=== PATIENT | male | born 1960 | race African-American/Black ===

== ENCOUNTER 2024-12-03 10:32 | Inpatient (IN) ==
[2024-12-03 11:54] LABS: Appearance Urine Clear (Clear); Glucose Urine UA Negative (Negative)
[2024-12-03 12:07] LABS: Hematocrit (blood only) 39.6 % (42.0-52.0); Hemoglobin 12.4 g/dl (14.0-18.0); Immature Granulocytes # (auto) 0.01 K/uL (0.01-0.20); Immature Granulocytes % (auto) 0.2 %; Mean Corpuscular Hemoglobin 25.0 pg (25.0-34.0); Mean Corpuscular Volume 79.8 fL (80.0-100.0); Platelet Count 212 K/uL (130-400); RDW Standard Deviation 44.6 fL (36.4-46.3); Red Blood Count 4.96 M/uL (4.70-6.10); White Blood Count 4.02 K/ul (4.8-10.8)
[2024-12-03 12:50] LABS: Alanine Aminotransferase 14.0 U/L (7-52); Albumin Globulin Ratio 1.0 (0.9-2); Albumin Level 4.0 gm/dl (3.4-5.0); Alkaline Phosphatase 59.0 U/L (34-104); Anion Gap 7.0 (3-11); Bilirubin,Total 0.6 mg/dl (0.2-1.0); Blood Urea Nitrogen 11.0 mg/dl (6-23); Calcium 9.3 mg/dl (8.6-10.3); Carbon Dioxide 29.0 mmol/L (21-32); Chloride 103.0 mmol/L (98-107); Creatinine Clr Calc Pharmacy 86.1 ml/min; Globulin 4.0 gm/dl (2.5-4.0); Glucose 102.0 mg/dl (70-99(Fasting)); Potassium 3.7 mmol/L (3.5-5.1); Sodium 139.0 mmol/L (136-145); Total Protein 8.0 gm/dl (6.0-8.3)
--- NOTE | 2024-12-03 12:52 | Emergency Department Note ---
Impression & Plan Stroke-like symptoms, New onset a-fib ED Provider Note NAME: CHRISTELLE [id number] RYAN AGE: 64 SEX: M : 1960 ARRIVES VIA: Ambulance INFORMANT: Patient, ED PROVIDER(S): Tory Sharma MD CHIEF COMPLAINT: Dizziness, headache, vision change HPI: This is a 64-year-old male present for dizziness, headache and vision change. Patient states that he began having symptoms for past 4 to 5 days, intermittently. He has dizziness. Feels like the room is spinning. He also notes a headache at this time. Occasionally he will have left eye vision changes when his vision goes out completely. Today because black incisor is blurry. He reports no weakness to his arms or legs otherwise. No recent falls. Patient does not think he is on a blood thinner. ROS: See above HPI for pertinent positives & negatives. A total of 10 systems reviewed and were otherwise negative. PAST MEDICAL HISTORY: See Below PAST SURGICAL HISTORY: See Below FAMILY HISTORY: See Below SOCIAL HISTORY: See Below HOME MEDICATIONS: See Below ALLERGIES: See Below VITALS: See Below PHYSICAL EXAMINATION: General: resting comfortably in no acute distress Head: Normocephalic and atraumatic Eyes: Normal inspection, extraocular muscles intact Ear, nose, throat: Normal external exam Neck: Normal range of motion Respiratory: lungs clear to auscultation bilaterally Cardiovascular: Regular rate/rhythm, no murmur GI: soft, nontender, no guarding or rebound Extremities: nontender, moves all extremities Neuro: The patient awake and alert, appropriately conversive, no focal deficits, symmetric faces, symmetric motor function upper lower extremities, right beating nystagmus, cranial nerves II through XII intact Skin: Warm, dry, and intact MEDICAL DECISION MAKING: This is a 64-year-old male presenting for dizziness, headache and vision change. Will do screening CTA head and neck to assess for LVO. Consider CRAO, vertigo, central stroke. Will do screening blood work. Patient is not sure if he is ever had A-fib and does not think is on a blood thinner only blood pressure medication. I am unable to find record of patient having A-fib or a blood thinner on his records from [facility]. -Negative urinalysis - Bloodwork is reviewed showing no significant leukocytosis, anemia, electrolyte or creatinine abnormality - CT imaging reveals mild to moderate stenosis of the V2 segment of the vertebral arteries at the C4/C5 level - CT head does reveal signs of likely old infarct - Patient's intermittent symptoms, possible new A-fib with anticoagulation will with the patient for further stroke workup A-fib. Differential diagnosis: Migraine, CRAO, vertigo, stroke, A-fib Independent History obtained from: Presyncope Diagnostics interpreted by me: ECG: ECG independently interpreted by me with atrial fibrillation rate of 76, left axis deviation, intraventricular conduction delay normal QTc, no ST segment elevations consistent with STEMI criteria Cardiac Monitoring: An order was placed for continuous cardiac monitoring. The monitor shows a rate of 86 with sinus rhythm. Past Med/Surg History Problem List (Updated 12/03/24 @ 17:18 by Tory Sharma MD) Stroke-like symptoms (Acute) New onset a-fib (Acute) Medical History (Updated 12/03/24 @ 17:18 by Tory Sharma MD) Sciatica Chronic pain syndrome Glaucoma Neuropathy HLD (hyperlipidemia) HTN (hypertension) Social History Smoking Status: Former smoker Preferred Language: Estonian Feels Safe at Home: Yes Allergies Allergies Allergy/AdvReac Type Severity Reaction Status Date / Time No Known Allergies Allergy Unverified 12/03/24 15:53 Home Meds Home Medications Medication Instructions Recorded Confirmed amlodipine 10 mg tablet 10 mg PO DAILY 12/03/24 12/03/24 aspirin 81 mg tablet 81 mg PO QAM 12/03/24 12/03/24 brimonidine 0.2 % eye drops 1 drp ophthalmic (eye) TID 12/03/24 12/03/24 dorzolamide 2 % eye drops 1 drp ophthalmic (eye) TID 12/03/24 12/03/24 enalapril maleate 10 mg tablet 10 mg PO DAILY 12/03/24 12/03/24 (Vasotec) latanoprost 0.005 % eye drops 1 drp ophthalmic (eye) PM 12/03/24 12/03/24 levothyroxine 200 mcg tablet 200 mcg PO DAILY 12/03/24 12/03/24 levothyroxine 25 mcg tablet 25 mcg PO DAILY 12/03/24 12/03/24 pravastatin 20 mg tablet 20 mg PO HS 12/03/24 12/03/24 timolol maleate 0.25 % eye drops 1 drp ophthalmic (eye) BID 12/03/24 12/03/24 Results & Data (ED) Vital Signs Vital Signs - 24 hr 12/03/24 10:27 12/03/24 10:27 12/03/24 12:27 Temperature 36.8 C Temperature Source Oral Pulse Rate 85 Pulse Rate [Apical] 63 Pulse Rhythm Regular Pulse Rhythm [Apical] Regular Pulse Strength Normal Pulse Strength [Apical] Normal Respiratory Rate 12 22 Respiratory Effort / Characteristics Non-Labored Spontaneous Non-Labored Respiratory Depth Normal Normal Respiratory Pattern Regular Blood Pressure 152/109 H Blood Pressure [Right Arm] 133/85 Blood Pressure Mean 123 Blood Pressure Mean [Right Arm] 101 Pulse Oximetry 97 97 95 Oxygen Delivery Method Room Air Room Air Room Air Sepsis Recent Fever Within 48 Hours No Sepsis New/Unexplained Change in Mental Status No Sepsis Action Taken by Nursing No Action Required 12/03/24 14:00 12/03/24 15:20 12/03/24 16:18 Temperature Temperature Source Pulse Rate 76 Pulse Rate [Apical] 81 86 Pulse Rhythm Pulse Rhythm [Apical] Pulse Strength Pulse Strength [Apical] Respiratory Rate 23 19 Respiratory Effort / Characteristics Non-Labored Respiratory Depth Normal Respiratory Pattern Blood Pressure Blood Pressure [Right Arm] 138/83 159/83 H Blood Pressure Mean Blood Pressure Mean [Right Arm] 101 108 Pulse Oximetry 99 97 Oxygen Delivery Method Room Air Room Air Sepsis Recent Fever Within 48 Hours Sepsis New/Unexplained Change in Mental Status Sepsis Action Taken by Nursing Laboratory Data 12/03/24 11:51 12/03/24 12:06 Lab Results 12/03/24 12/03/24 12/03/24 Range/Units 11:00 11:51 12:06 WBC 4.02 L (4.8-10.8) K/ul RBC 4.96 (4.70-6.10) M/uL Hgb 12.4 L (14.0-18.0) g/dl Hct 39.6 L (42.0-52.0) % MCV 79.8 L (80.0-100.0) fL MCH 25.0 (25.0-34.0) pg MCHC 31.3 L (32.0-36.0) g/dL RDW Std Deviation 44.6 (36.4-46.3) fL RDW Coeff of Abdoul 15.6 H (11.5-14.5) % Plt Count 212 (130-400) K/uL MPV 8.6 L (9.4-12.4) fL Immature Gran % (Auto) 0.2 % Neut % (Auto) 61.2 % Lymph % (Auto) 27.4 % [place] % (Auto) 10.2 % Eos % (Auto) 0.5 % Baso % (Auto) 0.5 % Neut # (Auto) 2.46 (1.40-6.50) K/uL Lymph # (Auto) 1.10 L (1.20-3.40) K/uL [place] # (Auto) 0.41 (0.11-0.59) K/uL Eos # (Auto) 0.02 (0.00-0.50) K/uL Baso # (Auto) 0.02 (0.00-0.20) K/uL Immature Gran # (Auto) 0.01 (0.01-0.20) K/uL Sodium 139 (136-145) mmol/L Potassium 3.7 (3.5-5.1) mmol/L Chloride 103 (98-107) mmol/L Carbon Dioxide 29 (21-32) mmol/L Anion Gap 7 (3-11) BUN 11 (6-23) mg/dl Creatinine 0.88 (0.6-1.4) mg/dl Est Cr Clr Drug Dosing 86.1 ml/min eGFR 94.84 BUN/Creatinine Ratio 12.5 (10-20) Glucose 102 H (70-99(Fasting)) mg/dl Calcium 9.3 (8.6-10.3) mg/dl Total Bilirubin 0.6 (0.2-1.0) mg/dl AST 21 (13-39) U/L ALT 14 (7-52) U/L Alkaline Phosphatase 59 (34-104) U/L Troponin I High Sens 15.8 (0-20) pg/ml Total Protein 8.0 (6.0-8.3) gm/dl Albumin 4.0 (3.4-5.0) gm/dl Globulin 4.0 (2.5-4.0) gm/dl Albumin/Globulin Ratio 1.0 (0.9-2) TSH 3.120 (0.300-4.500) uIu/ml Urine Color Yellow Urine Appearance Clear (Clear) Urine pH 7.5 (4.5-7.5) Ur Specific [place] 1.012 (1.000-1.030) Urine Protein Negative (Negative) Urine Glucose (UA) Negative (Negative) Urine Ketones Negative (Negative) Urine Blood Negative (Negative) Urine Nitrite Negative (Negative) Urine Bilirubin Negative (Negative) Urine Urobilinogen Negative (Negative) Ur Leukocyte Esterase Negative (Negative) Urine Comment Administered Medications Discontinued Medications Ioversol (Optiray 320 125ml) 120 ml IV ONCE ONE Stop: 12/03/24 13:19 Last Admin: 12/03/24 13:18 Dose: 120 ml Documented By: VIANEY Imaging Data Radiologist's Impression: Head CTA 12/03/24 11:08 CT angio head wo/w CLINICAL HISTORY: Vision loss, headache, vertigo COMPARISON STUDY: None FINDINGS: Noncontrast head CT: There is a moderate-sized area of encephalomalacia posterior right parietal lobe into the right temporal lobe, likely old infarction. No intracranial hemorrhage seen. No mass effect, midline shift, or hydrocephalus. No skull fracture seen. Visualized paranasal sinuses and mastoid air cells are clear. CTA: Distal internal carotid and vertebral arteries are patent. Left vertebral artery is dominant and the right vertebral artery is very diminutive, anatomic variant. Basilar artery is diminutive but patent. Anterior, middle, and posterior cerebral arteries are patent bilaterally. 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 Cerebral venous sinuses opacify normally. IMPRESSION: 1. No acute findings. 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 2. No significant arterial narrowing or occlusion seen at the brain. ACT 112: Negative or not required by law. Electronically signed by: Omar Blue M.D. 12/03/2024 1:43 PM Neck CTA 12/03/24 11:08 CT angio neck with con CLINICAL HISTORY: 64 years-old Male with Vision loss, headache, vertigo. Acute headache with vertigo COMPARISON STUDY: CTA head of same day TECHNIQUE: Following the IV administration of 1 20 mL of Optiray, CT angiogram of the neck was performed from the aortic arch to the skull base. Images are reviewed in the axial, sagittal, and coronal planes. 3-D MIPS images are created and assessed. IV contrast was administered without complication. All measurements were calculated based on NASCET criteria. A dose lowering technique was utilized adhering to the principles of ALARA. CT DOSE: 1332.15 mGy.cm FINDINGS: Three-vessel morphology of the thoracic aortic arch. There is patency of the innominate and image subclavian arteries. The common and imaged internal carotid arteries are also widely patent. Dominant left vertebral artery is widely patent. There is approximately 50% stenosis of the left V2 segment at the level of C4-C5 secondary to spondylosis. The right vertebral artery is developmentally diminutive and patent. There is at least 50% stenosis of the V2 segment level C4-C5 secondary to spondylosis. Lung apices are clear without pneumothorax. Unremarkable soft tissues. Multilevel degenerative changes of the spine with bridging osteophytosis. IMPRESSION: 1. No aneurysm, dissection, high-grade stenosis or arterial occlusion. 2. Mild to moderate stenoses of the V2 segments of the vertebral arteries at the level of C4-C5 secondary to spondylosis. ACT 112: Negative or not required by law. The above report was generated using voice recognition software. It may contain grammatical, syntax or spelling errors. Electronically signed by: Terrell Garay M.D. 12/03/2024 1:46 PM Discharge Plan Visit Data Chief Complaint: Dizziness Stated Complaint: DIZZY ED Provider: Tory Sharma Discharge Problem: Stroke-like symptoms, New onset a-fib Patient Disposition: Admitted As Inpatient Condition: Fair Prescriptions Prescriptions: No Action latanoprost 0.005 % Drops 1 drp OPHTHALMIC (EYE) PM enalapril maleate [Vasotec] 10 mg Tablet 10 mg PO DAILY levothyroxine 25 mcg Tablet 25 mcg PO DAILY amlodipine 10 mg Tablet 10 mg PO DAILY timolol maleate [Timoptic] 0.25 % Drops 1 drp OPHTHALMIC (EYE) BID brimonidine [Alphagan] 0.2 % Drops 1 drp OPHTHALMIC (EYE) TID Rx Instructions: administer approximately 8 hours apart levothyroxine 200 mcg Tablet 200 mcg PO DAILY aspirin 81 mg Tablet 81 mg PO QAM pravastatin 20 mg Tablet 20 mg PO HS dorzolamide [Trusopt] 2 % Drops 1 drp OPHTHALMIC (EYE) TID [facility]errals [facility] -
[2024-12-03] MEDS: OPTIRAY 320 125ml IV ONE (13:18)
--- NOTE | 2024-12-03 13:31 | Electrocardiogram Report ---
Test Reason : Blood Pressure : */* mmHG Vent. Rate : 76 BPM Atrial Rate : * BPM P-R Int : * ms QRS Dur : 136 ms QT Int : 402 ms P-R-T Axes : * -52 96 degrees QTcB Int : 452 ms Atrial fibrillation Left axis deviation Non-specific intra-ventricular conduction block Minimal voltage criteria for LVH, may be normal variant T wave abnormality, consider lateral ischemia Abnormal ECG Confirmed by Thaddeus Griffin ([id number]) on 12/03/2024 1:30:49 PM Referred By: [facility] Confirmed By: Thaddeus Griffin
--- NOTE | 2024-12-03 13:44 | CT Scan Report ---
CT angio head wo/w CLINICAL HISTORY: Vision loss, headache, vertigo COMPARISON STUDY: None FINDINGS: Noncontrast head CT: There is a moderate-sized area of encephalomalacia posterior right parietal lobe into the right temporal lobe, likely old infarction. No intracranial hemorrhage seen. No mass effect , midline shift, or hydrocephalus. No skull fracture seen. Visualized paranasal sinuses and mastoid a ir cells are clear. CTA: Distal internal carotid and vertebral arteries are patent. Left vertebral artery is dominant and the right vertebral artery is very diminutive, anatomic variant. Basilar artery is diminutive but pa tent. Anterior, middle, and posterior cerebral arteries are patent bilaterally. 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 Cerebral venous sinuses opacify normally. IMPRESSION: 1. No acute findings. 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 2. No significant arterial narrowing or occlusion seen at the brain. ACT 112: Negative or not required by law. Electronically signed by: Omar Blue M.D. 12/03/2024 1:43 PM
--- NOTE | 2024-12-03 13:47 | CT Scan Report ---
CT angio neck with con CLINICAL HISTORY: 64 years-old Male with Vision loss, headache, vertigo. Acute headache with verti go COMPARISON STUDY: CTA head of same day TECHNIQUE: Following the IV administration of 1 20 mL of Optiray, CT angiogram of the neck was perfor med from the aortic arch to the skull base. Images are reviewed in the axial, sagittal, and coronal p lanes. 3-D MIPS images are created and assessed. IV contrast was administered without complication. A ll measurements were calculated based on NASCET criteria. A dose lowering technique was utilized adh ering to the principles of ALARA. CT DOSE: 1332.15 mGy.cm FINDINGS: Three-vessel morphology of the thoracic aortic arch. There is patency of the innominate and image sub clavian arteries. The common and imaged internal carotid arteries are also widely patent. Dominant le ft vertebral artery is widely patent. There is approximately 50% stenosis of the left V2 segment at t he level of C4-C5 secondary to spondylosis. The right vertebral artery is developmentally diminutive and patent. There is at least 50% stenosis of the V2 segment level C4-C5 secondary to spondylosis. Lung apices are clear without pneumothorax. Unremarkable soft tissues. Multilevel degenerative change s of the spine with bridging osteophytosis. IMPRESSION: 1. No aneurysm, dissection, high-grade stenosis or arterial occlusion. 2. Mild to moderate stenoses of the V2 segments of the vertebral arteries at the level of C4-C5 secon rachel to spondylosis. ACT 112: Negative or not required by law. The above report was generated using voice recognition software. It may contain grammatical, syntax o r spelling errors. Electronically signed by: Terrell Garay M.D. 12/03/2024 1:46 PM
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
[2024-12-03 16:54] LABS: Thyroid Stimulating Hormone 3.12 uIu/ml (0.300-4.500)
--- NOTE | 2024-12-03 17:38 | XCELERA ---
[id number]
[2024-12-03] MEDS ORDERED: PHARMACIST DISCHARGE MED REC CONSULT PRN (17:53)
[2024-12-03] MEDS: ASPIRIN 81 MG ECTAB PO STA (18:40)
[2024-12-03] MEDS: APIXABAN 5 MG TABLET PO STA (18:40)
[2024-12-03] MEDS: GADOBUTROL 65ML VIAL IV ONE (20:06)
[2024-12-03] MEDS: METOPROLOL TARTRATE 25 MG TAB PO SCH (21:06)
[2024-12-03] MEDS: BRIMONIDINE TARTRATE 0.2% 5ML OP SCH (21:06)
[2024-12-03] MEDS: ATORVASTATIN 40 MG TAB PO SCH (21:06)
[2024-12-03] MEDS: DORZOLAMIDE HCL 2% OPH SOLN 10 ML BTL OP SCH (21:06)
[2024-12-03] MEDS: TIMOLOL MALEATE 0.25% OP SOLN 5 ML BTL OP SCH (21:06)
--- NOTE | 2024-12-03 22:03 | Magnetic Resonance Report ---
Exam(s): MRI HEAD W/WO Contrast EXAM: MR Head Without and With Intravenous Contrast CLINICAL HISTORY: Reason for exam: eval for cva. TECHNIQUE: Magnetic resonance images of the head/brain without and with intravenous contrast in multiple planes. CONTRAST: Contrast must be dictated COMPARISON: Prior head CT from December 03, 2024. FINDINGS: Brain: There is a remote ischemic injury of the right frontal, temporal and temporal lobes with encephalomalacia and gliosis. Remote ischemic changes of the left cerebellum. Mild nonspecific white matter changes. No mass. No hemorrhage. No acute infarct. The flow voids at the base the brain are intact. No evidence of abnormal enhancement. The dural venous sinuses are patent. Ventricles: Unremarkable. No ventriculomegaly. Bones/joints: Unremarkable. No acute fracture. Sinuses: Unremarkable as visualized. Chronic ethmoid sinusitis. Visualized. No mastoid effusion. Orbits: Unremarkable as visualized. IMPRESSION: No evidence of acute intracranial pathology. Electronically signed by: Shannon Colon MD 12/03/24 22:02 PM
[2024-12-03] MEDS ORDERED: ATROPINE SULFATE 0.1 MG/ML 10ML SYR IV PRN (23:40)
--- NOTE | 2024-12-03 23:41 | Communication Note ---
Date of Service: December 03, 2024 Made aware by RN of patient bradycardia, heart rate low 40's with episode of Pause lasting 3 second. Patient comfortable as per RN. SBP 100s. AP Asymptomatic bradycardia, episodic sinus pause Patient started on beta-azhida on admission for A-fib Hold beta-zahida for now, may need to be resumed at lower dose. IV atropine as needed symptomatic bradycardia
[2024-12-04] LABS: Magnesium 2.1 mg/dl (1.7-2.4)
[2024-12-04] MEDS: NSS + 20MEQ KCL 20 MEQ/1,000 ML BAG IV ONE (00:37)
[2024-12-04] MEDS: LEVOTHYROXINE SODIUM 25 MCG TABLET PO SCH (05:57)
[2024-12-04] MEDS: LEVOTHYROXINE SODIUM 200 MCG TABLET PO SCH (05:58)
[2024-12-04 08:05] LABS: Hematocrit (blood only) 37.0 % (42.0-52.0); Hemoglobin 11.4 g/dl (14.0-18.0); Immature Granulocytes # (auto) 0.02 K/uL (0.01-0.20); Immature Granulocytes % (auto) 0.5 %; Mean Corpuscular Hemoglobin 24.6 pg (25.0-34.0); Mean Corpuscular Volume 79.9 fL (80.0-100.0); Platelet Count 188 K/uL (130-400); RDW Standard Deviation 45.4 fL (36.4-46.3); Red Blood Count 4.63 M/uL (4.70-6.10); White Blood Count 4.08 K/ul (4.8-10.8)
[2024-12-04 08:24] LABS: Anion Gap 7.0 (3-11); Blood Urea Nitrogen 16.0 mg/dl (6-23); Calcium 9.0 mg/dl (8.6-10.3); Carbon Dioxide 28.0 mmol/L (21-32); Chloride 103.0 mmol/L (98-107); Cholesterol 177.0 mg/dl (0-200); Creatinine Clr Calc Pharmacy 64.2 ml/min; Glucose 123.0 mg/dl (70-99(Fasting)); HDL Cholesterol 57.0 mg/dl; Potassium 4.0 mmol/L (3.5-5.1); Sodium 138.0 mmol/L (136-145); Triglycerides 66.0 mg/dl (0-150)
--- NOTE | 2024-12-04 08:47 | Cardiology Consultation ---
Date of Consultation December 04, 2024 Assessment & Plan (1) Atrial fibrillation with controlled ventricular rate: (2) Amaurosis fugax of left eye: (3) LV dysfunction: Plan Patient is a 64 year old male prisoner admitted with acute visual changes, possible left eye amaurosis fugax, slurred speech, concerning for acute CVA . No evidence of acute CVA on brain MRI. 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 Newly diagnosed atrial fibrillation noted on EKG. Rates controlled. Duration unknown. Asymptomatic. Also found to have cardiomyopathy with LV dysfunction 30-35%. No interatrial shunt. No known cardiovascular history. HS troponin negative. No anginal symptoms or complaints. Neurology consulted for CVA. Cardiology consulted for Afib and Cardiomyopathy. Recommendations: Initially Afib was treated on admission with metoprolol tartrate 25 mg BID. Patient developed transient slow rates with beta zahida. Oral Beta zahida discontinued. He needs to continue his timolol beta zahida eye drops for glaucoma. Monitor on telemetry. He currently has no symptoms. No current indication for pacemaker. Started Eliquis 5 mg BID for anticoagulation therapy. Likely had TIA on admission with negative imaging. Old CVA noted on Brain MRI. He is also borderline hypotensive. Hold home dose amlodipine and enalapril. New cardiomyopathy. Etiology uncertain. no symptoms. -Will need GDMT as tolerated. Likely to start losartan rather than enalapril when BP improves. -Not able to start BB given slow ventricular rates. -Appears euvolemic and does not require diuretics at this time. -Consider outpatient nuclear stress test after he recovers from neurologic event. Cardiac cath not recommended at this time. -Consider Lifevest given LVEF < 35%. Will need to verify if this is allowed at skilled nursing facility. Case discussed with Dr. Rodriguez I spent a total of 60 minutes on the date of service in preparation, delivery, and documentation of the care provided to this patient, excluding any time spent in the performance of separately billed services. Shannon Gaines PA-C Department of Cardiology, [facility] This chart was completed in part utilizing Speech Voice Recognition Software. Grammatical errors, random word insertions, pronoun errors, and incomplete sentences are an occasional consequence of this system due to software limitations, ambient noise, and hardware issues. Any formal questions or concerns about the content, text, or information contained within the body of this dictation should be directly addressed to the provider for clarification. Supervising Physician Co-Signing Physician Notes I have personally performed a history and physical examination on the patient. I have reviewed the advance practitioner's documentation, and I agree with, and take responsibility for the plan of care. 64-year-old male presenting with visual changes, dizziness, and headache concerning for TIA. Cardiac testing demonstrating atrial fibrillation (likely chronic) and cardiomyopathy with severe LV systolic dysfunction. No sign/symptom decompensated heart failure. Denies angina, orthopnea, PND, or lower extremity edema. Patient unaware of cardiac issues. Reports remote history of atrial fibrillation coinciding with diagnosis of thyroid dysfunction in the . Currently resting comfortably. Visual changes and dizziness has resolved. Asymptomatic 3 to 3.6-second pauses recorded on telemetry after administration of metoprolol. Recommendations: * Long-term anticoagulation with Eliquis 5 mg twice daily * Discontinue beta-zahida * Consider addition of low-dose RAYMOND inhibitor/ARB in a.m. * Continue telemetry monitoring. * No indication for diuretic therapy at this time * Outpatient ischemic testing, Lexiscan nuclear stress testing when he recovers from neurologic event. * Consider LifeVest due to LVEF < 35% at discharge. I spent a total of 35 minutes on the date of service in preparation, delivery, and documentation of the care provided to this patient, excluding any time spent in the performance of separately billed services. Camilo Rodriguez DO, [facility] History of Present Illness Reason for Consultation: Atrial fibrillation; Cardiomypathy Requesting Physician: Araceli Li Attending Physician: Dr. Rodriguez History of Present Illness Patient is a 64 year male prisoner, who presented to [facility] with complaints of visual disturbances and dizziness over the last 3-4 days. He was also found to have possible delayed and slurred speach yesterday at the skilled nursing, and then sent to ER for evaluation. Initial Head CT demonstrating possible old right parietal infarct. No acute CVA. CTA of the neck shows mild to moderate stenosis of the vertebral arteries at the C4-C5 level secondary to spondylosis. Brain MRI was negative. He was incidentally found to have new onset atrial fibrillation. Duration unknown. Patient reported palpitations intermittently over the last few days. He was started on Eliquis 5 mg BID by hospitalist team due to prior stroke on CTA and possible symptoms suggesting TIA. Also upon admission he was found to have LV systolic dysfunction with LVEF at 30-35%. Patient reports the he may have had afib approx 30 years ago when he had Graves disease, but is unsure. He denies history of WI, CHF, valvular disease. He has had no recent chest pain or dyspnea to suggest angina. No CHF symptoms. On admission patient was started on metoprolol tartrate 25 mg BID. Overnight he had afib with slow ventricular rates and several pauses of 3 to 3.5 seconds. He has been asymptomatic with these slow ventricular rates. BP also borderline low. Antihypertensive therapies on hold (typically takes enalapril and amlodipine) At time of evaluation, patient reports he is feeling better since admission. He reports his vision is chronically impaired from glaucoma. He also does not have his glasses and reports its hard to tell if his vision is back at baseline. No chest pain/dyspnea/dizziness/palpitations. History includes: 1. HTN 2. Dyslipidemia 3. Graves disease with past Iodine therapy 4. Glaucoma 5. Chronic pain syndrome 6. Neuropathy 7. Chronic tobacco abuse Allergies Allergy/AdvReac Type Severity Reaction Status Date / Time No Known Allergies Allergy Unverified 12/03/24 15:53 Home Medications Medication Instructions Recorded Confirmed Type amlodipine 10 mg tablet 10 mg PO DAILY 12/03/24 12/03/24 History aspirin 81 mg tablet 81 mg PO QAM 12/03/24 12/03/24 History brimonidine 0.2 % eye drops 1 drp ophthalmic (eye) TID 12/03/24 12/03/24 History dorzolamide 2 % eye drops 1 drp ophthalmic (eye) TID 12/03/24 12/03/24 History enalapril maleate 10 mg tablet 10 mg PO DAILY 12/03/24 12/03/24 History (Vasotec) latanoprost 0.005 % eye drops 1 drp ophthalmic (eye) PM 12/03/24 12/03/24 History levothyroxine 200 mcg tablet 200 mcg PO DAILY 12/03/24 12/03/24 History levothyroxine 25 mcg tablet 25 mcg PO DAILY 12/03/24 12/03/24 History pravastatin 20 mg tablet 20 mg PO HS 12/03/24 12/03/24 History timolol maleate 0.25 % eye drops 1 drp ophthalmic (eye) BID 12/03/24 12/03/24 History Patient History Medical History (Updated 12/04/24 @ 13:33 by Shannon Gaines PA-C) Sciatica Chronic pain syndrome Glaucoma Neuropathy HLD (hyperlipidemia) HTN (hypertension) Social History Smoking Status: Former smoker Hx Alcohol Use: No Hx Substance Use: No Preferred Language: Japanese Juvenile Justice Officer Required: No Beliefs That Will Affect Care: None Current Living Situation: Other Current Living Situation Comment: [facility] Feels Safe at Home: Yes Review of Systems Review of Systems: All systems reviewed & are unremarkable except as noted in HPI & below Physical Exam Constitutional: WD/WN, vitals as above Neck: trachea midline, no thyromegaly Respiratory: normal respiratory effort, lungs clear to auscultation Cardiovascular: Rate/Rhythm: + irregularly irregular Heart Sounds: normal S1 and normal S2; no murmur Vessels: no JVD Extremities: no edema Gastrointestinal (Abdomen): normal bowel sounds, soft, nontender, no hepatosplenomegaly Musculoskeletal: no cyanosis or clubbing, extremities motor strength 5/5 Neurologic: PERRL, EOMI, accommodation nl, no face palsy, no dysarthria Results & Data Vital Signs (Past 12 Hours) Vital Signs Temp Pulse Pulse Resp BP Pulse Ox O2 Del Method 12/04/24 08:09 36.6 C 54 L 18 100/58 L 97 Room Air 12/04/24 03:01 36.5 C 70 18 106/66 96 Room Air 12/03/24 23:32 40 L 20 102/60 96 Room Air 12/03/24 22:28 36.5 C 71 18 114/75 96 Room Air 12/03/24 21:43 62 12/03/24 21:30 Room Air Laboratory Results Lipids 12/04/24 Range/Units 06:50 Triglycerides 66 (0-150) mg/dl Cholesterol 177 (0-200) mg/dl HDL Cholesterol 57 mg/dl Cholesterol/HDL Ratio 3.1 (0-5) CBC 12/04/24 Range/Units 06:50 WBC 4.08 L (4.8-10.8) K/ul RBC 4.63 L (4.70-6.10) M/uL Hgb 11.4 L (14.0-18.0) g/dl Hct 37.0 L (42.0-52.0) % Plt Count 188 (130-400) K/uL Neut # (Auto) 2.23 (1.40-6.50) K/uL Lymph # (Auto) 1.27 (1.20-3.40) K/uL [place] # (Auto) 0.50 (0.11-0.59) K/uL Eos # (Auto) 0.04 (0.00-0.50) K/uL Baso # (Auto) 0.02 (0.00-0.20) K/uL Comprehensive Metabolic Panel 12/04/24 Range/Units 06:50 Sodium 138 (136-145) mmol/L Potassium 4.0 (3.5-5.1) mmol/L Chloride 103 (98-107) mmol/L Carbon Dioxide 28 (21-32) mmol/L BUN 16 (6-23) mg/dl Creatinine 1.27 D (0.6-1.4) mg/dl Glucose 123 H (70-99(Fasting)) mg/dl Calcium 9.0 (8.6-10.3) mg/dl Intake and Output 12/03/24 12/04/24 12/04/24 22:59 06:59 14:59 Intake Total 200 / 300 100 / 300 1000 / 1000 Balance 200 / 300 100 / 300 1000 / 1000 Intake: IV 1000 / 1000 Nss + 20Meq KCl 20 meq In 1,000 1000 / 1000 ml @ 75 mls/hr IV .[id number] ONE Rx#:[id number] Oral 200 / 300 100 / 300 Other: Weight 92.2 kg Weight Measurement Method Built in [facility] Diagnostic Findings Telemetry reviewed: Persistent course afib, HR ranging mostly 50-60's. Intermittent slow ventricular rates in the 40's. Echo report reviewed from 12/03: Rhythm is afib with controlled rate at time of echo. LVEF moderately to severely reduced at 30-35% Moderate concentric LVH Base and mid inferior wall and base posterior wall is severely hypokinetic to akinetic Moderate diffuse hypokinesis. LA is severely dilated No interatrial shunt with injection of contrast. Moderate MR Trace TR No pulm hypertension EKG reviewed from admission 12/03: Afib with controlled rate at 76 bmp LAD Non specific conduction delay Possible LVH Head CTA 12/03/24 11:08 CT angio head wo/w CLINICAL HISTORY: Vision loss, headache, vertigo COMPARISON STUDY: None FINDINGS: Noncontrast head CT: There is a moderate-sized area of encephalomalacia posterior right parietal lobe into the right temporal lobe, likely old infarction. No intracranial hemorrhage seen. No mass effect, midline shift, or hydrocephalus. No skull fracture seen. Visualized paranasal sinuses and mastoid air cells are clear. CTA: Distal internal carotid and vertebral arteries are patent. Left vertebral artery is dominant and the right vertebral artery is very diminutive, anatomic variant. Basilar artery is diminutive but patent. Anterior, middle, and post erior cerebral arteries are patent bilaterally. There is origin of the farmworker bulbs bilaterally. Cerebral venous sinuses opacify normally. IMPRESSION: 1. No acute findings. 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 2. No significant arterial narrowing or occlusion seen at the brain. ACT 112: Negative or not required by law. Electronically signed by: Omar Blue M.D. 12/03/2024 1:43 PM Neck CTA 12/03/24 11:08 CT angio neck with con CLINICAL HISTORY: 64 years-old Male with Vision loss, headache, vertigo. Acute headache with vertigo COMPARISON STUDY: CTA head of same day TECHNIQUE: Following the IV administration of 1 20 mL of Optiray, CT angiogram of the neck was performed from the aortic arch to the skull base. Images are reviewed in the axial, sagittal, and coronal planes. 3-D MIPS images are created and assessed. IV contrast was administered without complication. All measurements were calculated based on NASCET criteria. A dose lowering sadie hnique was utilized adhering to the principles of ALARA. CT DOSE: 1332.15 mGy.cm FINDINGS: Three-vessel morphology of the thoracic aortic arch. There is patency of the innominate and image subclavian arteries. The common and imaged internal carotid arteries are also widely patent. Dominant left vertebral artery is widely patent. There is approximately 50% stenosis of the left V2 segment at the level of C4-C5 secondary to spondylosis. The right vertebral artery is developmentally diminutive and patent. There is at least 50% stenosis of the V2 segment level C4-C5 secondary to spondylosis. Lung apices are clear without pneumothorax. Unremarkable soft tissues. Multilevel degenerative changes of the spine with bridging osteophytosis. IMPRESSION: 1. No aneurysm, dissection, high-grade stenosis or arterial occlusion. 2. Mild to moderate stenoses of the V2 segments of the vertebral arteries at the level of C4-C5 secondary to spondylosis. ACT 112: Negative or not required by law. The above report was generated using voice recognition software. It may contain grammatical, syntax or spelling errors. Electronically signed by: Terrell Garay M.D. 12/03/2024 1:46 PM Brain MRI 12/03/24 14:58 Exam(s): MRI HEAD W/WO Contrast EXAM: MR Head Without and With Intravenous Contrast CLINICAL HISTORY: Reason for exam: eval for cva. TECHNIQUE: Magnetic resonance images of the head/brain without and with intravenous contrast in multiple planes. CONTRAST: Contrast must be dictated COMPARISON: Prior head CT from December 03, 2024. FINDINGS: Brain: There is a remote ischemic injury of the right frontal, temporal and temporal lobes with encephalomalacia and gliosis. Remote ischemic changes of the left cerebellum. Mild nonspecific white matter changes. No mass. No hemorrhage. No acute infarct. The flow voids at the base the brain are intact. No evidence of abnormal enhancement. The dural venous sinuses are patent. Ventricles: Unremarkable. No ventriculomegaly. Bones/joints: Unremarkable. No acute fracture. Sinuses: Unremarkable as visualized. Chronic ethmoid sinusitis. Visualized. No mastoid effusion. Orbits: Unremarkable as visualized. IMPRESSION: No evidence of acute intracranial pathology. Electronically signed by: Shannon Colon MD 12/03/24 22:02 PM Medications Administered Current Inpatient Medications Apixaban (Apixaban 5 Mg Tablet) 5 mg PO BID LANA Stop: 01/03/25 08:59 Last Admin: 12/04/24 09:19 Dose: 5 mg Aspirin (Aspirin 81 Mg Ectab) 81 mg PO QAM LANA Stop: 01/03/25 08:59 Last Admin: 12/04/24 09:19 Dose: 81 mg Atorvastatin Calcium (Atorvastatin 40 Mg Tab) 80 mg PO HS LANA Stop: 01/02/25 20:59 Last Admin: 12/03/24 21:06 Dose: 80 mg Atropine Sulfate (Atropine Sulfate 0.1 Mg/Ml 10ml Syr) 1 mg IV Q3M PRN PRN Reason: symptomatic bradycardia Stop: 01/02/25 23:39 Brimonidine Tartrate (Brimonidine Tartrate 0.2% 5ml) 1 drops OP Q8H LANA Stop: 01/02/25 20:59 Last Admin: 12/04/24 12:47 Dose: 1 drops Dorzolamide HCl (Dorzolamide Hcl 2% Oph Soln 10 Ml Btl) 1 drops OP Q8H LANA Stop: 01/02/25 20:59 Last Admin: 12/04/24 12:46 Dose: 1 drops Potassium Chloride/Sodium Chloride (Normal Saline W/20 Meq Kcl) 20 meq in 1,000 mls @ 75 mls/hr IV .[id number] ONE Stop: 12/04/24 13:04 Last Infusion: 12/04/24 12:48 Dose: Infused Levothyroxine Sodium (Levothyroxine Sodium 25 Mcg Tablet) 25 mcg PO DAILYBB [facility] Stop: 01/03/25 06:29 Last Admin: 12/04/24 05:57 Dose: 25 mcg Levothyroxine Sodium (Levothyroxine Sodium 200 Mcg Tablet) 200 mcg PO DAILYBB [facility] Stop: 01/03/25 06:29 Last Admin: 12/04/24 05:58 Dose: 200 mcg Metoprolol Tartrate (Metoprolol Tartrate 25 Mg Tab) 25 mg PO BID LANA Stop: 01/02/25 20:59 Last Admin: 12/03/24 21:06 Dose: 25 mg Miscellaneous Information (Pharmacist Discharge Med Rec Consult) 1 each N/A UD PRN PRN Reason: Consult Stop: 01/02/25 17:52 Timolol Maleate (Timolol Maleate 0.25% Op Soln 5 Ml Btl) 1 drops OP BID [facility] Stop: 01/02/25 20:59 Last Admin: 12/04/24 09:20 Dose: 1 drops PG Care Time/CCT Total # of Minutes Spent Total Time Spent with Patient: Total time spent is greater than 50% in coordination of care (as documented) at patient's floor/unit and/or counseling patient: 60 minutes Coding Level of Care Code 82730 IN/OBS CONSULT LVL 5,80M Diagnoses Atrial fibrillation with controlled ventricular rate I48.91 Amaurosis fugax of left eye G45.3 LV dysfunction I51.9
[2024-12-04] MEDS: APIXABAN 5 MG TABLET PO SCH (09:19)
[2024-12-04] MEDS: ASPIRIN 81 MG ECTAB PO SCH (09:19)
--- NOTE | 2024-12-04 10:53 | Neurology Consultation ---
Date of Consultation December 04, 2024 Assessment & Plan (1) Stroke-like symptoms: Reported vision symptoms consistent with amaurosis fugax Recommend continued stroke work up to include the following: Echocardiogram as part of complete stroke workup Continue frequent neurological assessments Obtain stat CT brain without contrast for any acute neurological decline Continue to monitor/control blood pressure & blood glucose Continue to monitor telemetry closely Continue to monitor renal and hepatic function, keep euvolemic Metabolic workup should include hgbA1c, fasting lipids Agree with continued full anticoagulation (for new onset AFIB) in addition to daily ASA Continue to monitor for s/s of hemorrhage Recommend continue high dose statin therapy indefinitely if tolerated Ok from neurology perspective for VTE prophylaxis PT/OT/SLT to eval and treat Recommend eval for ORQUIDEA and consider outpatient polysomnography Plan for continued follow up outpatient neurology 4-6 weeks (2) New onset a-fib: Agree with continued full anticoag (3) Amaurosis fugax of left eye: Recommend continued anticoagulation and ASA with high dose statin therapy Follow up outpatient neurology 4-6 weeks Telehealth Consultation Telehealth Information Telehealth Information: I performed this visit using a real-time telehealth connection between my location and the patients originating location ([facility]). After connecting through interactive tele-video, patient was identified by name and date of and/or wristband check.Patient (or authorized healthcare wine sales representative) was informed that this was a telemedicine visit and it was being conducted confidentially over secure lines. My office door was closed and no one else was present in the room with me.Patient (or authorized healthcare wine sales representative) provided consent to proceed with the visit, expressed an understanding of privacy and security of the telemedicine visit, and gave permission to have a hospital wine sales representative in the room in order to assist with the visit and to conduct portions of the visit, as needed. I informed the patient (or authorized healthcare wine sales representative) that I reviewed their record and presented the opportunity for them to ask any questions regarding the visit today. The patient agreed to participate. History of Present Illness Reason for Consultation: Stroke like symptoms Requesting Physician: Dr Bee Attending Physician: Chauncey Bee MD History of Present Illness 64yo right handed male with hx of HTN, hyperlipidemia Graves disease presented with complaint of dizziness headache and left eye vision changes. Symptoms were ongoing for days prior so not considered an IV thrombolytic candidate. He has undergone emergent stroke imaging including CT brain without contrast, personally reviewed today, revealing no overt evidence of hemorrhage. CT angiographic studies of head and neck, also personally reviewed today, reveal no overt evidence of large vessel occlusion or significant/flow limiting stenosis. He has also undergone MRI brain without contrast, personally reviewed, depicting no evidence of acute ischemic stroke or acute intracranial pathology. I have performed televideo consultation. He is alert & oriented; able to answer all questions appropriately, name objects on televideo monitor, repeat phrases and perform complex/embedded commands without deficit. Neurological exam is non lateralizing/nonfocal in terms of motor strength and coordination. He reports left eye complete vision loss followed by return of vision as if a curtain was being pulled toward the periphery consistent with amaurosis fugax. He reports chronic vision changes but his left eye vision complaint has now resolved. He has notably demonstrated significant bradycardia and atrial fibrillation per telemetry monitoring. Now pending cardiology consultation. He denies falls or trauma. No reported cephalgia or cervicalgia at this time. He currently denies chest pain/palpitations or shortness of breath. No reported recurrent changes in vision. He has chronic hypoacusis. Denies paresthesia. Denies recent fevers chills nausea vomiting changes in bowels or bladder. He is unsure of any recent medication changes. Denies recent illness or sick contacts, no reported recent travel notably currently residing in an incarceration facility. Allergies Allergy/AdvReac Type Severity Reaction Status Date / Time No Known Allergies Allergy Unverified 12/03/24 15:53 Home Medications Medication Instructions Recorded Confirmed Type amlodipine 10 mg tablet 10 mg PO DAILY 12/03/24 12/03/24 History aspirin 81 mg tablet 81 mg PO QAM 12/03/24 12/03/24 History brimonidine 0.2 % eye drops 1 drp ophthalmic (eye) TID 12/03/24 12/03/24 History dorzolamide 2 % eye drops 1 drp ophthalmic (eye) TID 12/03/24 12/03/24 History enalapril maleate 10 mg tablet 10 mg PO DAILY 12/03/24 12/03/24 History (Vasotec) latanoprost 0.005 % eye drops 1 drp ophthalmic (eye) PM 12/03/24 12/03/24 History levothyroxine 200 mcg tablet 200 mcg PO DAILY 12/03/24 12/03/24 History levothyroxine 25 mcg tablet 25 mcg PO DAILY 12/03/24 12/03/24 History pravastatin 20 mg tablet 20 mg PO HS 12/03/24 12/03/24 History timolol maleate 0.25 % eye drops 1 drp ophthalmic (eye) BID 12/03/24 12/03/24 History Patient History Medical History (Updated 12/04/24 @ 11:19 by Elpidio Steve DO) Sciatica Chronic pain syndrome Glaucoma Neuropathy HLD (hyperlipidemia) HTN (hypertension) Social History Smoking Status: Former smoker Hx Alcohol Use: No Hx Substance Use: No Preferred Language: Thai 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 Oriented to person, place, and time. Fluency naming repetition and comprehension appear grossly intact. Affect remains appropriate. CN testing: I: Deferred II: Reports no acute changes in visual acuity at this time III/IV/: No evidence of gaze preference, hippus, nystagmus or roving eye movements V: Facial sensation reportedly grossly intact to light touch bilaterally VII: Facial movements appear without evidence of asymmetry VIII: Hearing appears grossly intact to loud voice bilaterally- noting reported chronic hypoacusis IX/X: Palate is unable to be accurately visualized XI: Shoulder shrug appears symmetric/ grossly intact bilaterally XII: Tongue protrudes midline without evidence of biting Motor exam: Strength appears grossly intact in all extremities Tone: Unable to accurately assess via telemedicine Sensory: Sensation is reportedly grossly intact throughout Coordination: No apparent evidence of dysmetria or dysdiadochokinesia Reflexes: Unable to accurately assess via telemedicine Gait: Deferred Results & Data Vital Signs (Past 12 Hours) Vital Signs Temp Pulse Pulse Resp BP Pulse Ox O2 Del Method 12/04/24 09:53 49 L 12/04/24 09:24 53 L 98/54 L 12/04/24 08:09 36.6 C 54 L 18 100/58 L 97 Room Air 12/04/24 03:01 36.5 C 70 18 106/66 96 Room Air 12/03/24 23:32 40 L 20 102/60 96 Room Air Laboratory Results Abnormal lab results 12/03/24 12/03/24 12/04/24 Range/Units 11:51 12:06 06:50 WBC 4.02 L 4.08 L (4.8-10.8) K/ul RBC 4.63 L (4.70-6.10) M/uL Hgb 12.4 L 11.4 L (14.0-18.0) g/dl Hct 39.6 L 37.0 L (42.0-52.0) % MCV 79.8 L 79.9 L (80.0-100.0) fL MCH 24.6 L (25.0-34.0) pg MCHC 31.3 L 30.8 L (32.0-36.0) g/dL RDW Coeff of Abdoul 15.6 H 15.9 H (11.5-14.5) % MPV 8.6 L 9.0 L (9.4-12.4) fL Lymph # (Auto) 1.10 L (1.20-3.40) K/uL Glucose 102 H 123 H (70-99(Fasting)) mg/dl Diagnostic Findings Head CTA 12/03/24 11:08 CT angio head wo/w CLINICAL HISTORY: Vision loss, headache, vertigo COMPARISON STUDY: None FINDINGS: Noncontrast head CT: There is a moderate-sized area of encephalomalacia posterior right parietal lobe into the right temporal lobe, likely old infarction. No intracranial hemorrhage seen. No mass effect, midline shift, or hydrocephalus. No skull fracture seen. Visualized paranasal sinuses and mastoid air cells are clear. CTA: Distal internal carotid and vertebral arteries are patent. Left vertebral artery is dominant and the right vertebral artery is very diminutive, anatomic variant. Basilar artery is diminutive but patent. Anterior, middle, and posterior cerebral arteries are patent bilaterally. There is origin of the vehicle operator bilaterally. Cerebral venous sinuses opacify normally. IMPRESSION: 1. No acute findings. 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 2. No significant arterial narrowing or occlusion seen at the brain. ACT 112: Negative or not required by law. Electronically signed by: Omar Blue M.D. 12/03/2024 1:43 PM Neck CTA 12/03/24 11:08 CT angio neck with con CLINICAL HISTORY: 64 years-old Male with Vision loss, headache, vertigo. Acute headache with vertigo COMPARISON STUDY: CTA head of same day TECHNIQUE: Following the IV administration of 1 20 mL of Optiray, CT angiogram of the neck was performed from the aortic arch to the skull base. Images are reviewed in the axial, sagittal, and coronal planes. 3-D MIPS images are created and assessed. IV contrast was administered without complication. All measurements were calculated based on NASCET criteria. A dose lowering technique was utilized adhering to the principles of ALARA. CT DOSE: 1332.15 mGy.cm FINDINGS: Three-vessel morphology of the thoracic aortic arch. There is patency of the innominate and image subclavian arteries. The common and imaged internal carotid arteries are also widely patent. Dominant left vertebral artery is widely patent. There is approximately 50% stenosis of the left V2 segment at the level of C4-C5 secondary to spondylosis. The right vertebral artery is developmentally diminutive and patent. There is at least 50% stenosis of the V2 segment level C4-C5 secondary to spondylosis. Lung apices are clear without pneumothorax. Unremarkable soft tissues. Multilevel degenerative changes of the spine with bridging osteophytosis. IMPRESSION: 1. No aneurysm, dissection, high-grade stenosis or arterial occlusion. 2. Mild to moderate stenoses of the V2 segments of the vertebral arteries at the level of C4-C5 secondary to spondylosis. ACT 112: Negative or not required by law. The above report was generated using voice recognition software. It may contain grammatical, syntax or spelling errors. Electronically signed by: Terrell Garay M.D. 12/03/2024 1:46 PM Brain MRI 12/03/24 14:58 Exam(s): MRI HEAD W/WO Contrast EXAM: MR Head Without and With Intravenous Contrast CLINICAL HISTORY: Reason for exam: eval for cva. TECHNIQUE: Magnetic resonance images of the head/brain without and with intravenous contrast in multiple planes. CONTRAST: Contrast must be dictated COMPARISON: Prior head CT from December 03, 2024. FINDINGS: Brain: There is a remote ischemic injury of the right frontal, temporal and temporal lobes with encephalomalacia and gliosis. Remote ischemic changes of the left cerebellum. Mild nonspecific white matter changes. No mass. No hemorrhage. No acute infarct. The flow voids at the base the brain are intact. No evidence of abnormal enhancement. The dural venous sinuses are patent. Ventricles: Unremarkable. No ventriculomegaly. Bones/joints: Unremarkable. No acute fracture. Sinuses: Unremarkable as visualized. Chronic ethmoid sinusitis. Visualized. No mastoid effusion. Orbits: Unremarkable as visualized. IMPRESSION: No evidence of acute intracranial pathology. Electronically signed by: Shannon Colon MD 12/03/24 22:02 PM Medications Administered Home Medications Medication Instructions Recorded Confirmed Last Taken amlodipine 10 mg tablet 10 mg PO DAILY 12/03/24 12/03/24 12/03/24 aspirin 81 mg tablet 81 mg PO QAM 12/03/24 12/03/24 12/03/24 brimonidine 0.2 % eye drops 1 drp ophthalmic (eye) TID 12/03/24 12/03/24 Unknown dorzolamide 2 % eye drops 1 drp ophthalmic (eye) TID 12/03/24 12/03/24 Unknown enalapril maleate 10 mg tablet 10 mg PO DAILY 12/03/24 12/03/24 12/03/24 (Vasotec) latanoprost 0.005 % eye drops 1 drp ophthalmic (eye) PM 12/03/24 12/03/24 Unknown levothyroxine 200 mcg tablet 200 mcg PO DAILY 12/03/24 12/03/24 Unknown levothyroxine 25 mcg tablet 25 mcg PO DAILY 12/03/24 12/03/24 Unknown pravastatin 20 mg tablet 20 mg PO HS 12/03/24 12/03/24 Unknown timolol maleate 0.25 % eye drops 1 drp ophthalmic (eye) BID 12/03/24 12/03/24 Unknown Active Medications Generic Name Dose Route Start Last Admin Trade Name Freq PRN Reason Stop Dose Admin Apixaban 5 mg 12/04/24 09:00 12/04/24 09:19 Apixaban 5 Mg Tablet PO 01/03/25 08:59 5 mg BID LANA Administration Aspirin 81 mg 12/04/24 09:00 12/04/24 09:19 Aspirin 81 Mg Ectab PO 01/03/25 08:59 81 mg QAM LANA Administration Atorvastatin Calcium 80 mg 12/03/24 21:00 12/03/24 21:06 Atorvastatin 40 Mg Tab PO 01/02/25 20:59 80 mg HS LANA Administration Brimonidine Tartrate 1 drops 12/03/24 21:00 12/04/24 05:58 Brimonidine Tartrate 0.2% 5ml OP 01/02/25 20:59 1 drops Q8H LANA Administration Dorzolamide HCl 1 drops 12/03/24 21:00 12/04/24 05:58 Dorzolamide Hcl 2% Oph Soln 10 Ml Btl OP 01/02/25 20:59 1 drops Q8H LANA Administration Potassium Chloride/Sodium Chloride 20 meq in 1,000 mls @ 75 mls/hr 12/03/24 23:45 12/04/24 00:37 Normal Saline W/20 Meq Kcl IV 12/04/24 13:04 75 mls/hr .[id number] ONE Administration Levothyroxine Sodium 25 mcg 12/04/24 06:30 12/04/24 05:57 Levothyroxine Sodium 25 Mcg Tablet PO 01/03/25 06:29 25 mcg DAILYBB LANA Administration Levothyroxine Sodium 200 mcg 12/04/24 06:30 12/04/24 05:58 Levothyroxine Sodium 200 Mcg Tablet PO 01/03/25 06:29 200 mcg DAILYBB LANA Administration Metoprolol Tartrate 25 mg 12/03/24 21:00 12/03/24 21:06 Metoprolol Tartrate 25 Mg Tab PO 01/02/25 20:59 25 mg BID LANA Administration Timolol Maleate 1 drops 12/03/24 21:00 12/04/24 09:20 Timolol Maleate 0.25% Op Soln 5 Ml Btl OP 01/02/25 20:59 1 drops BID LANA Administration
[2024-12-04 10:59] LABS: Hemoglobin A1C 6.5 % (4.5-5.6)
--- NOTE | 2024-12-04 14:20 | Pharmacy Report ---
- Date of Service December 04, 2024 - Pharmacy CVA/TIA Medication Review Medications to Prevent Stroke handout has been added to the patients discharge packet. Antiplatelet(s) * Aspirin 81mg daily Cholesterol * High intensity statin: atorvastatin 80 mg daily DVT Prophylaxis * On therapeutic anticoagulation with Eliquis Therapeutic Anticoagulation * Hx Afib/Aflutter noted, and patient is currently receiving apixaban 5mg twice daily Type 2 Diabetes * Patient does not have T2DM
[2024-12-04] MEDS ORDERED: GLUCOSE 10 TAB/TUBE PO PRN (14:31)
[2024-12-04] MEDS ORDERED: GLUCOSE 40% GEL 15 GM TUBE PO PRN (14:31)
[2024-12-04] MEDS ORDERED: DEXTROSE 50% 50 ML SYRINGE IV PRN (14:31)
[2024-12-04] MEDS ORDERED: GLUCAGON FOR INJ 1 MG VIAL SQ PRN (14:31)
[2024-12-04] MEDS ORDERED: CARBOHYDRATES FOR HYPOGLYCEMIA PO PRN (14:31)
--- NOTE | 2024-12-04 14:39 | Hospitalist Progress Note ---
Date of Service December 04, 2024 Assessment & Plan (1) New onset a-fib: (2) Stroke-like symptoms: Plan Strokelike symptoms Likely TIA, amaurosis fugax --MRI Brain:No evidence of acute intracranial pathology --Head CTA:No acute findings. 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 --Neck CTA:No aneurysm, dissection, high-grade stenosis or arterial occlusion. Mild to moderate stenoses of the V2 segments of the vertebral arteries at the level of C4-C5 secondary to spondylosis. -- Lipid panel within normal limits, LDL 107 --HbA1c 6.5 --ECHO: EF 30 to 35%. Moderate concentric LVH. Basal and mid inferior wall, base posterior wall is severely hypokinetic to akinetic. Moderate diffuse hypokinesis. Left atrium severely dilated. No interatrial shunt. Moderate mitral regurgitation. Trace tricuspid regurgitation. Findings do not suggest pulmonary hypertension. -- Continue aspirin, statin, Eliquis Appreciate neurology input Needs follow-up with neurology in 4 to 6 weeks as outpatient PT OT, speech isaac Advised to follow-up with ophthalmology as outpatient as well. New onset afib Bradycardia/sinus pause Metoprolol on hold On Eliquis for anticoagulation Echo as above Appreciate cardiology input Cardiomyopathy Echo as above Metoprolol on hold due to bradycardia Plan to start on losartan once blood pressure improves Currently euvolemic, will not start on diuretics Will need stress test as outpatient Given low EF, will need LifeVest DM II New diagnosis HbA1c 6.5 6.5 Will start on insulin sliding scale while hospitalized Monitor blood glucose levels HTN Blood pressure relatively low currently Monitor blood pressure HLD Continue atorvastatin as above Glaucoma - Cont eye drops Will need follow-up with ophthalmology on discharge Hypothyroidism H/O Graves disease, hx of iodine therapy previously Normal TSH Continue levothyroxine Other medical issues: Sciatica Neuropathy Chronic Pain Syndrome PT/OT consults, monitor for pain DVT Px: Eliquis CODE STATUS: Full code Admission and Anticipated Discharge Date Admission Date: December 03, 2024 Subjective Patient is seen and examined at bedside States that his vision is much improved Also reports his speech is back to baseline Reports chronic dyspnea on exertion No other complaints today Review of Systems Review of Systems: All systems reviewed & are unremarkable except as noted in Subjective Physical Exam Physical Exam: Physical Exam: Vitals signs as noted above General Appearance:Moderately built and nourished, no apparent distress Head: normocephalic, Atraumatic Eyes: normal inspection, EOMI Neck: supple, Trachea midline Respiratory/Chest: Normal breath sounds, CTA, No accessory muscle use Cardiovascular: Irregularly irregular, No murmur,+Bradycardia Abdomen/GI:Soft, Non tender, Bowel sounds present Extremities/Musculoskeletal:normal inspection, Trace edema Neurologic/Psych:AAOX3, grossly no focal neurological deficits Skin: normal color, warm Results & Data Results & Data Vital Signs (Past 12 Hours) Vital Signs Temp Pulse Pulse Resp BP Pulse Ox O2 Del Method 12/04/24 11:52 36.3 C L 55 L 17 109/67 98 Room Air 12/04/24 09:53 49 L 12/04/24 09:24 53 L 98/54 L 12/04/24 08:09 36.6 C 54 L 18 100/58 L 97 Room Air 12/04/24 03:01 36.5 C 70 18 106/66 96 Room Air Laboratory Results Short CBC 12/04/24 Range/Units 06:50 WBC 4.08 L (4.8-10.8) K/ul Hgb 11.4 L (14.0-18.0) g/dl Hct 37.0 L (42.0-52.0) % Plt Count 188 (130-400) K/uL BMP 12/04/24 06:50 Sodium 138 Potassium 4.0 Chloride 103 Carbon Dioxide 28 BUN 16 Creatinine 1.27 D Glucose 123 H Calcium 9.0
[2024-12-04] MEDS: INSULIN ASPART PER UNIT CHARGE SC SCH (17:24)
[2024-12-05 01:46] LABS: Hematocrit (blood only) 34.9 % (42.0-52.0); Hemoglobin 10.9 g/dl (14.0-18.0); Immature Granulocytes # (auto) 0.00 K/uL (0.01-0.20); Immature Granulocytes % (auto) 0.0 %; Mean Corpuscular Hemoglobin 25.0 pg (25.0-34.0); Mean Corpuscular Volume 80.0 fL (80.0-100.0); Platelet Count 171 K/uL (130-400); RDW Standard Deviation 45.6 fL (36.4-46.3); Red Blood Count 4.36 M/uL (4.70-6.10); White Blood Count 4.46 K/ul (4.8-10.8)
[2024-12-05 02:03] LABS: Anion Gap 6.0 (3-11); Blood Urea Nitrogen 19.0 mg/dl (6-23); Calcium 8.5 mg/dl (8.6-10.3); Carbon Dioxide 27.0 mmol/L (21-32); Chloride 106.0 mmol/L (98-107); Creatinine Clr Calc Pharmacy 66.8 ml/min; Glucose 101.0 mg/dl (70-99(Fasting)); Magnesium 2.0 mg/dl (1.7-2.4); Potassium 3.9 mmol/L (3.5-5.1); Sodium 139.0 mmol/L (136-145)
[2024-12-05] MEDS: POTASSIUM CHLORIDE CRTAB 20 MEQ TABCR PO STA (02:25)
[2024-12-05 07:58] VITALS: RESP 16
[2024-12-05] MEDS: VALSARTAN/SACUBITRIL 26/24MG TAB PO SCH (09:36)
[2024-12-05 11:52] VITALS: BP 138/85; PULSE 63; TEMP 97.7; O2SAT 100
--- NOTE | 2024-12-05 12:06 | Hospitalist Progress Note ---
Date of Service December 05, 2024 Assessment & Plan (1) New onset a-fib: (2) Stroke-like symptoms: Plan Strokelike symptoms Likely TIA, amaurosis fugax --MRI Brain:No evidence of acute intracranial pathology --Head CTA:No acute findings. 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 --Neck CTA:No aneurysm, dissection, high-grade stenosis or arterial occlusion. Mild to moderate stenoses of the V2 segments of the vertebral arteries at the level of C4-C5 secondary to spondylosis. -- Lipid panel within normal limits, LDL 107 --HbA1c 6.5 --ECHO: EF 30 to 35%. Moderate concentric LVH. Basal and mid inferior wall, base posterior wall is severely hypokinetic to akinetic. Moderate diffuse hypokinesis. Left atrium severely dilated. No interatrial shunt. Moderate mitral regurgitation. Trace tricuspid regurgitation. Findings do not suggest pulmonary hypertension. -- Continue aspirin, statin, Eliquis Appreciate neurology input Needs follow-up with neurology in 4 to 6 weeks as outpatient PT OT, speech eval Advised to follow-up with ophthalmology as outpatient as well. Vision back to baseline Plan to discharge to correctional facility likely today New onset afib Bradycardia/sinus pause No metoprolol due to bradycardia On Eliquis for anticoagulation Echo as above Appreciate cardiology input Cardiomyopathy Echo as above Metoprolol on hold due to bradycardia Currently euvolemic, will not start on diuretics Enalapril changed to Entresto Given low EF, recommended LifeVest Patient currently not interested in using LifeVest. He understands his condition, potential complications from not using LifeVest. Needs follow-up with cardiology on discharge with repeat echo and stress test DM II New diagnosis HbA1c 6.5 6.5 Insulin sliding scale while hospitalized Monitor blood glucose levels Will start on metformin on discharge HTN Started on Entresto Monitor blood pressure HLD Continue atorvastatin as above Glaucoma - Cont eye drops Will need follow-up with ophthalmology on discharge Hypothyroidism H/O Graves disease, hx of iodine therapy previously Normal TSH Continue levothyroxine Other medical issues: Sciatica Neuropathy Chronic Pain Syndrome PT/OT consults, monitor for pain DVT Px: Eliquis CODE STATUS: Full code Disposition [facility] facility Admission and Anticipated Discharge Date Admission Date: December 05, 2024 Subjective Patient is seen and examined at bedside No new complaints Vision seems to be back to baseline Eager to get discharged Discussed with cardiology today Patient denies any chest pain, dyspnea, nausea, vomiting, abdominal pain Review of Systems Review of Systems: All systems reviewed & are unremarkable except as noted in Subjective Physical Exam Physical Exam: Physical Exam: Vitals signs as noted above General Appearance:Moderately built and nourished, no apparent distress Head: normocephalic, Atraumatic Eyes: normal inspection, EOMI Neck: supple, Trachea midline Respiratory/Chest: Normal breath sounds, CTA, No accessory muscle use Cardiovascular: Irregularly irregular, No murmur,+Bradycardia Abdomen/GI:Soft, Non tender, Bowel sounds present Extremities/Musculoskeletal:normal inspection, Trace edema Neurologic/Psych:AAOX3, grossly no focal neurological deficits Skin: normal color, warm Results & Data Results & Data Vital Signs (Past 12 Hours) Vital Signs Temp Pulse Pulse Resp BP BP Pulse Ox 12/05/24 11:50 36.5 C 63 16 138/85 100 12/05/24 07:58 36.6 C 67 16 128/76 99 12/05/24 07:30 61 12/05/24 03:50 36.5 C 58 L 18 133/91 98 12/05/24 01:14 59 L 20 147/86 H 96 O2 Del Method 12/05/24 11:50 Room Air 12/05/24 07:58 Room Air 12/05/24 07:30 12/05/24 03:50 Room Air 12/05/24 01:14 Room Air Laboratory Results Short CBC 12/05/24 Range/Units 01:25 WBC 4.46 L (4.8-10.8) K/ul Hgb 10.9 L (14.0-18.0) g/dl Hct 34.9 L (42.0-52.0) % Plt Count 171 (130-400) K/uL BMP 12/05/24 01:25 Sodium 139 Potassium 3.9 Chloride 106 Carbon Dioxide 27 BUN 19 Creatinine 1.22 Glucose 101 H Calcium 8.5 L
--- NOTE | 2024-12-05 12:32 | Cardiology Progress Note ---
Date of Service December 05, 2024 Assessment & Plan (1) Atrial fibrillation with controlled ventricular rate: (2) Amaurosis fugax of left eye: (3) LV dysfunction: Plan Patient is a 64 year old male prisoner admitted with acute visual changes, possible left eye amaurosis fugax, slurred speech, concerning for acute CVA . No evidence of acute CVA on brain MRI. 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 Newly diagnosed atrial fibrillation noted on EKG. Rates controlled. Duration unknown. Asymptomatic. Also found to have cardiomyopathy with LV dysfunction 30-35%. No interatrial shunt. No known cardiovascular history. HS troponin negative. No anginal symptoms or complaints. Neurology consulted for CVA. Cardiology consulted for Afib and Cardiomyopathy. Recommendations: Initially Afib was treated on admission with metoprolol tartrate 25 mg BID, he then developed afib with slow rates and prolonged R to R intervals. This resolved with holding metoprolol. No symptoms of dizziness reported. Avoid oral AV sasha blocking therapies. He needs to continue his timolol beta zahida eye drops for glaucoma. No current indication for pacemaker. Started Eliquis 5 mg BID for anticoagulation therapy. Likely had TIA on admission with negative imaging. Old CVA noted on Brain MRI. Continue anticoagulation therapy on discharge. New cardiomyopathy. Etiology uncertain. No symptoms. -Will need GDMT as tolerated. -BP improved this morning. He has been off enalapril for several days (washed out). -Start Entresto 25 mg dose BID -He is to not resume enalapril or amlodipine on discharge. -Not able to start evidence based BB given slow ventricular rates. -Appears euvolemic and does not require diuretics at this time. -Recommend outpatient nuclear stress test after he recovers from neurologic event. Cardiac cath not recommended at this time. -We discussed LifeVest given LVEF < 35%. According to alf staff, he would need to stay in infirmary with LifeVest in place. Patient declines. he is understanding of his risks of SCD without vest. After 3 months of tolerated medical therapies, would repeat echco. If LVEF < 35%, consider ICD. -Stable for discharge today. -discussed with hospitalist Case discussed with Dr. Rodriguez I spent a total of 40 minutes on the date of service in preparation, delivery, and documentation of the care provided to this patient, excluding any time spent in the performance of separately billed services. Shannon K Eder, PA-C Department of Cardiology, [facility] This chart was completed in part utilizing Speech Voice Recognition Software. Grammatical errors, random word insertions, pronoun errors, and incomplete sentences are an occasional consequence of this system due to software limitations, ambient noise, and hardware issues. Any formal questions or concerns about the content, text, or information contained within the body of this dictation should be directly addressed to the provider for clarification. Admission and Anticipated Discharge Date Admission Date: December 05, 2024 Supervising Physician Co-Signing Physician Notes I have personally performed a history and physical examination on the patient. I have reviewed the advance practitioner's documentation, and I agree with, and take responsibility for the plan of care. 64-year-old male presenting with visual changes, dizziness, and headache concerning for TIA. Cardiac testing demonstrating atrial fibrillation (likely chronic) and cardiomyopathy with severe LV systolic dysfunction. No sign/symptom decompensated heart failure. Denies angina, orthopnea, PND, or lower extremity edema. Patient unaware of cardiac issues. Reports remote history of atrial fibrillation coinciding with diagnosis of thyroid dysfunction in the . Currently resting comfortably. Visual changes and dizziness has resolved. Heart rate has improved with discontinuation of beta-zahida. Isolated 3.1-second pause occurred overnight during sleep. Average heart rate in the 50s. Recommendations: * Long-term anticoagulation with Eliquis 5 mg twice daily * Discontinue beta-zahida, do not restart secondary bradycardia and asymptoma tic pauses up to 3.6 sec. * Add low-dose Entresto. * Repeat BMP 1 week post discharge. * No indication for diuretic therapy at this time. * Outpatient ischemic testing, Lexiscan nuclear stress testing when he recovers from neurologic event. * Discussed LifeVest due to LVEF < 35%, patient declines. * Repeat echocardiogram in 3 months after optimization of GDMT * Outpatient cardiology follow-up in 2 to 4 weeks. I spent a total of 35 minutes on the date of service in preparation, delivery, and documentation of the care provided to this patient, excluding any time spent in the performance of separately billed services. Camilo Rodriguez DO, [facility] Subjective Patient resting in bed. Feeling well. Visual disturbances resolved. No dizziness or lightheadedness. No chest pain or SOB. wants to be discharged. We discussed life vest and he declines. Review of Systems Review of Systems: All systems reviewed & are unremarkable except as noted in HPI & below Physical Exam Constitutional: WD/WN, vitals as above Neck: trachea midline, no thyromegaly Respiratory: normal respiratory effort, lungs clear to auscultation Cardiovascular: Rate/Rhythm: + irregularly irregular Heart Sounds: normal S1 and normal S2; no murmur Vessels: no JVD Extremities: no edema Gastrointestinal (Abdomen): normal bowel sounds, soft, nontender, no hepatosplenomegaly Musculoskeletal: no cyanosis or clubbing, extremities motor strength 5/5 Neurologic: PERRL, EOMI, accommodation nl, no face palsy, no dysarthria Results & Data Vital Signs (Past 12 Hours) Vital Signs Temp Pulse Pulse Resp BP BP Pulse Ox 12/05/24 11:50 36.5 C 63 16 138/85 100 12/05/24 07:58 36.6 C 67 16 128/76 99 12/05/24 07:30 61 12/05/24 03:50 36.5 C 58 L 18 133/91 98 12/05/24 01:14 59 L 20 147/86 H 96 O2 Del Method 12/05/24 11:50 Room Air 12/05/24 07:58 Room Air 12/05/24 07:30 12/05/24 03:50 Room Air 12/05/24 01:14 Room Air Laboratory Results CBC 12/05/24 Range/Units 01:25 WBC 4.46 L (4.8-10.8) K/ul RBC 4.36 L (4.70-6.10) M/uL Hgb 10.9 L (14.0-18.0) g/dl Hct 34.9 L (42.0-52.0) % Plt Count 171 (130-400) K/uL Neut # (Auto) 1.85 (1.40-6.50) K/uL Lymph # (Auto) 1.93 (1.20-3.40) K/uL Mckinley # (Auto) 0.60 H (0.11-0.59) K/uL Eos # (Auto) 0.07 (0.00-0.50) K/uL Baso # (Auto) 0.01 (0.00-0.20) K/uL Comprehensive Metabolic Panel 12/05/24 Range/Units 01:25 Sodium 139 (136-145) mmol/L Potassium 3.9 (3.5-5.1) mmol/L Chloride 106 (98-107) mmol/L Carbon Dioxide 27 (21-32) mmol/L BUN 19 (6-23) mg/dl Creatinine 1.22 (0.6-1.4) mg/dl Glucose 101 H (70-99(Fasting)) mg/dl Calcium 8.5 L (8.6-10.3) mg/dl Intake and Output 12/04/24 12/05/24 12/05/24 22:59 06:59 14:59 Intake Total 250 / 1250 Balance 250 / 1250 Intake: Oral 250 / 250 Diagnostic Findings Telemetry reviewed: Persistent afib with rates ranging predominantly 50-60's. One prolonged R to R interval this morning lasting approx 3 seconds. No symptoms Medications Administered Current Inpatient Medications Apixaban (Apixaban 5 Mg Tablet) 5 mg PO BID [facility]NA Stop: 01/03/25 08:59 Last Admin: 12/05/24 08:24 Dose: 5 mg Aspirin (Aspirin 81 Mg Ectab) 81 mg PO QAM [facility]NA Stop: 01/03/25 08:59 Last Admin: 12/05/24 08:24 Dose: 81 mg Atorvastatin Calcium (Atorvastatin 40 Mg Tab) 80 mg PO HS LANA Stop: 01/02/25 20:59 Last Admin: 12/04/24 21:11 Dose: 80 mg Atropine Sulfate (Atropine Sulfate 0.1 Mg/Ml 10ml Syr) 1 mg IV Q3M PRN PRN Reason: symptomatic bradycardia Stop: 01/02/25 23:39 Brimonidine Tartrate (Brimonidine Tartrate 0.2% 5ml) 1 drops OP Q8H [facility]NA Stop: 01/02/25 20:59 Last Admin: 12/05/24 05:34 Dose: 1 drops Dextrose (Dextrose 50% 50 Ml Syringe) 25 - 50 ml IV UD PRN; Protocol PRN Reason: Hypoglycemia Protocol Stop: 01/03/25 14:30 Dorzolamide HCl (Dorzolamide Hcl 2% Oph Soln 10 Ml Btl) 1 drops OP Q8H [facility]NA Stop: 01/02/25 20:59 Last Admin: 12/05/24 05:34 Dose: 1 drops Glucagon (Glucagon For Inj 1 Mg Vial) 1 mg SQ UD PRN; Protocol PRN Reason: Hypoglycemia Protocol Stop: 01/03/25 14:30 Glucose (Glucose 40% Gel 15 Gm Tube) 15 - 30 gm PO UD PRN; Protocol PRN Reason: Hypoglycemia Protocol Stop: 01/03/25 14:30 Glucose (Glucose 10 Tab/Tube) 4 - 8 tab PO UD PRN; Protocol PRN Reason: Hypoglycemia Protocol Stop: 01/03/25 14:30 Insulin Aspart (Insulin Aspart Per Unit Charge) 0 units SC ACHS [facility]NA Stop: 01/03/25 16:29 Last Admin: 12/05/24 12:04 Dose: Not Given Levothyroxine Sodium (Levothyroxine Sodium 25 Mcg Tablet) 25 mcg PO DAILYBB [facility] Stop: 01/03/25 06:29 Last Admin: 12/05/24 05:35 Dose: 25 mcg Levothyroxine Sodium (Levothyroxine Sodium 200 Mcg Tablet) 200 mcg PO DAILYBB [facility] Stop: 01/03/25 06:29 Last Admin: 12/05/24 05:35 Dose: 200 mcg Metoprolol Tartrate (Metoprolol Tartrate 25 Mg Tab) 25 mg PO BID [facility] Stop: 01/02/25 20:59 Last Admin: 12/03/24 21:06 Dose: 25 mg Miscellaneous (Carbohydrates For Hypoglycemia ) 15 - 30 gm PO UD PRN PRN Reason: Hypoglycemia Protocol Stop: 01/03/25 14:30 Miscellaneous Information (Pharmacist Discharge Med Rec Consult) 1 each N/A UD PRN PRN Reason: Consult Stop: 01/02/25 17:52 Sacubitril/Valsartan (Valsartan/Sacubitril 26/24mg Tab) 1 tab PO BID [facility] Stop: 01/04/25 09:14 Last Admin: 12/05/24 09:36 Dose: 1 tab Timolol Maleate (Timolol Maleate 0.25% Op Soln 5 Ml Btl) 1 drops OP BID [facility] Stop: 01/02/25 20:59 Last Admin: 12/05/24 08:24 Dose: 1 drops PG Care Time/CCT Total # of Minutes Spent Total Time Spent with Patient: Total time spent is greater than 50% in coordination of care (as documented) at patient's floor/unit and/or counseling patient: 40 minutes Coding Level of Care Code 59705 SUB INP/OBS CARE 3/50MIN Diagnoses Atrial fibrillation with controlled ventricular rate I48.91 Amaurosis fugax of left eye G45.3 LV dysfunction I51.9
[2024-12-05] MEDS ORDERED: STROKE PATIENT DISCHARGE STA (12:46)
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
--- NOTE | 2024-12-05 14:33 | Electrocardiogram Report ---
Test Reason : Blood Pressure : */* mmHG Vent. Rate : 57 BPM Atrial Rate : * BPM P-R Int : * ms QRS Dur : 138 ms QT Int : 440 ms P-R-T Axes : * -52 121 degrees QTcB Int : 428 ms Atrial fibrillation with slow ventricular response Left axis deviation Non-specific intra-ventricular conduction block Minimal voltage criteria for LVH, may be normal variant Abnormal ECG When compared with ECG of 03-Dec-2024 10:38, Nonspecific T wave abnormality now evident in Inferior leads T wave inversion less evident in Lateral leads Confirmed by Thaddeus Griffin ([id number]) on 12/05/2024 2:33:26 PM Referred By: [facility] Confirmed By: Thaddeus Griffin
== END 2024-12-05 14:05 | DRG 123 ==
LOC: 2S 10:32 → ED 10:32 → 2S 17:31